=== PATIENT | female | born 1990 | race African-American/Black ===

== ENCOUNTER 2017-04-02 12:43 | Emergency (ER) | payer MEDICAID, OTHER ==
[~2017-04-02] VITALS: Ht 170.2 cm; Wt 57.0 kg
[~2017-04-02 12:43] MED LIST: ACET1TAB12 PO; ALBU6.7H IH; ARIP2TAB3 PO; SERT50TA PO; TRAZ-129 PO
[2017-04-02 19:13] LABS: HEMATOCRIT. 24.3 % (36.0-48.0); HEMOGLOBIN. 7.3 g/dL (12.0-16.0); MEAN CORPUSCULAR HEMOGLOBIN 18.8 pg (28.0-32.0); MEAN CORPUSCULAR VOLUME 63.2 fL (81.0-99.0); MEAN PLATELET VOLUME 6.4 fl (7.4-10.4); PLATELET 419 x1000/uL (130-400); RED BLOOD CELL COUNT 3.85 mill/uL (4.2-5.4); RED CELL DISTRIBUTION WIDTH 23.8 % (11.6-14.6)
[2017-04-02 19:24] LABS: CARBON DIOXIDE 29 mEq/L (21-32); CHLORIDE 105 mEq/L (98-107)
[2017-04-02 19:28] LABS: HCG SCREEN NEGATIVE
[2017-04-02 19:31] LABS: PLATELET ESTIMATE INCREASED
[2017-04-02 19:59] LABS: CLARITY URINE CLEAR (CLEAR); COLOR URINE YELLOW (YELLOW); GLUCOSE URINE NEGATIVE (NEGATIVE); KETONES URINE NEGATIVE (NEGATIVE); LEUKOCYTE ESTERASE URINE NEGATIVE (NEGATIVE); NITRITE URINE NEGATIVE (NEGATIVE); OCCULT BLOOD URINE NEGATIVE (NEGATIVE); PROTEIN URINE 1+ (NEGATIVE); SPECIFIC GRAVITY URINE 1.021 (1.005-1.030)
[2017-04-02 20:07] LABS: *AMPHETAMINES SCREEN URINE NEGATIVE (NEGATIVE); *BARBITURATES SCREEN URINE NEGATIVE (NEGATIVE); *BENZODIAZEPINES SCREEN URINE NEGATIVE (NEGATIVE); METHADONE URINE SCREEN NEGATIVE (NEGATIVE); OPIATES URINE SCREEN NEGATIVE (NEGATIVE); PHENCYCLIDINE URINE SCREEN NEGATIVE (NEGATIVE)
[2017-04-02 20:08] LABS: *COCAINE SCREEN URINE PRESUMTIVE POSITIVE (NEGATIVE); CANNABINOID URINE SCREEN PRESUMTIVE POSITIVE (NEGATIVE)
[2017-04-02 20:18] VITALS: BP 106/60
== END 2017-04-02 21:18 | disposition home or self-care (01) ==
LOC: ER 18:17
DX: L01.00 Impetigo, unspecified (principal); F17.200 Nicotine dependence, unspecified, uncomplicated; F12.10 Cannabis abuse, uncomplicated; J45.909 Unspecified asthma, uncomplicated; D64.9 Anemia, unspecified; Z91.018 Allergy to other foods
CPT/HCPCS: 36415; 80053; 80305; 81001; 84703; 85025; 99284; Z7610

== ENCOUNTER 2017-11-01 08:09 | Emergency (ER) | payer MEDICAID, OTHER ==
[~2017-11-01] VITALS: Ht 177.8 cm; Wt 60.0 kg
[2017-11-01] MEDS ORDERED: SODIUM CHLORIDE 0.9% 1,000 ML IV ONE (10:29)
[2017-11-01] MEDS ORDERED: METOCLOPRAMIDE HCL 10MG/2ML VIAL IV ONE (10:30)
[2017-11-01] MEDS ORDERED: ACETAMINOPHEN 325MG TABLET PO PRN (10:30)
[2017-11-01 10:57] LABS: BASOPHILS % 0.9 % (0.0-2.0); EOSINOPHILS % 0.7 % (0.0-5.0); HEMATOCRIT. 31.7 % (36.0-48.0); HEMOGLOBIN. 9.7 g/dL (12.0-16.0); LYMPHOCYTES % 18.1 % (20.0-50.0); MEAN CORPUSCULAR HEMOGLOBIN 22.9 pg (28.0-32.0); MEAN CORPUSCULAR VOLUME 74.5 fL (81.0-99.0); MEAN PLATELET VOLUME 7.6 fl (7.4-10.4); MONOCYTES % 5.1 % (2.0-8.0); NEUTROPHILS % 75.2 % (40.0-76.0); PLATELET 416 x1000/uL (130-400); RED BLOOD CELL COUNT 4.25 mill/uL (4.2-5.4); RED CELL DISTRIBUTION WIDTH 21.7 % (11.6-14.6)
[2017-11-01 11:01] LABS: CHLORIDE 105 mEq/L (98-107)
[2017-11-01 11:12] LABS: B-HCG QUANTITATIVE < 1 mIU/mL (<3)
[2017-11-01 11:13] LABS: HCG SCREEN NEGATIVE
[2017-11-01 12:22] VITALS: BP 117/77
== END 2017-11-01 12:41 | disposition home or self-care (01) ==
LOC: ER 08:20
DX: O98.511 Other viral diseases complicating pregnancy, first trimester (principal); B34.9 Viral infection, unspecified; O21.9 Vomiting of pregnancy, unspecified; Z3A.10 10 weeks gestation of pregnancy
CPT/HCPCS: 36415; 76830; 76856; 80053; 84702; 84703; 85025; 86850; 86900; 87804; 99285; J7030

== ENCOUNTER 2018-07-20 06:15 | Emergency (ER) | payer MEDICAID ==
[~2018-07-20] VITALS: Ht 172.7 cm; Wt 59.1 kg
[~2018-07-20 06:15] MED LIST changes: -TRAZ-129 PO; +TRAZ-212 PO
[2018-07-20 06:54] LABS: BASOPHILS % 0.9 % (0.0-2.0); HEMATOCRIT. 36.3 % (36.0-48.0); HEMOGLOBIN. 12.1 g/dL (12.0-16.0); LYMPHOCYTES % 19.3 % (20.0-50.0); MEAN CORPUSCULAR HEMOGLOBIN 28.9 pg (28.0-32.0); MEAN CORPUSCULAR VOLUME 86.8 fL (81.0-99.0); MONOCYTES % 5.9 % (2.0-8.0); NEUTROPHILS % 69.9 % (40.0-76.0); PLATELET 290 x1000/uL (130-400); RED BLOOD CELL COUNT 4.18 mill/uL (4.2-5.4); RED CELL DISTRIBUTION WIDTH 14.6 % (11.6-14.6)
[2018-07-20 06:57] LABS: CHLORIDE 108 mEq/L (98-107)
[2018-07-20 07:05] LABS: ETHANOL BLOOD < 10 mg/dL
[2018-07-20] MEDS ORDERED: ACTIVATED CHARCOAL 50 G/240 ML TUBE PO SCH (07:10)
[2018-07-20 09:28] LABS: CLARITY URINE CLEAR (CLEAR); COLOR URINE YELLOW (YELLOW); KETONES URINE NEGATIVE (NEGATIVE); LEUKOCYTE ESTERASE URINE 1+ (NEGATIVE); NITRITE URINE NEGATIVE (NEGATIVE); OCCULT BLOOD URINE 3+ (NEGATIVE); PROTEIN URINE NEGATIVE (NEGATIVE); SPECIFIC GRAVITY URINE 1.015 (1.005-1.030)
[2018-07-20] MEDS ORDERED: METOCLOPRAMIDE HCL 10MG/2ML VIAL IV ONE (09:30)
[2018-07-20] MEDS ORDERED: KETOROLAC 15MG/ML VIAL IV ONE (09:30)
[2018-07-20] MEDS ORDERED: SODIUM CHLORIDE 0.9% 1,000 ML IV ONE (09:30)
[2018-07-20 10:09] LABS: *AMPHETAMINES SCREEN URINE NEGATIVE (NEGATIVE); *BARBITURATES SCREEN URINE NEGATIVE (NEGATIVE); *BENZODIAZEPINES SCREEN URINE NEGATIVE (NEGATIVE); METHADONE URINE SCREEN NEGATIVE (NEGATIVE); OPIATES URINE SCREEN NEGATIVE (NEGATIVE); PHENCYCLIDINE URINE SCREEN NEGATIVE (NEGATIVE)
[2018-07-20 10:11] LABS: *COCAINE SCREEN URINE PRESUMTIVE POSITIVE (NEGATIVE); CANNABINOID URINE SCREEN PRESUMTIVE POSITIVE (NEGATIVE)
[2018-07-20 14:44] VITALS: BP 127/72
== END 2018-07-20 14:58 | disposition home or self-care (01) ==
LOC: ER 06:15
DX: T45.0X2A Poisoning by antiallergic and antiemetic drugs, intentional self-harm, initial encounter (principal); F32.9 Major depressive disorder, single episode, unspecified; F14.10 Cocaine abuse, uncomplicated; F41.9 Anxiety disorder, unspecified; J45.909 Unspecified asthma, uncomplicated; M41.9 Scoliosis, unspecified; N39.0 Urinary tract infection, site not specified; R51 Headache; Z98.890 Other specified postprocedural states; Y92.018 Other place in single-family (private) house as the place of occurrence of the external cause
CPT/HCPCS: 36415; 80053; 80305; 81003; 81025; 82962; 85025; 93005; 96374; 96375; 99285; G0482; J1885; J2765; J7030

== ENCOUNTER 2020-06-17 19:53 | Emergency (ER) | payer MEDICAID ==
[~2020-06-17] VITALS: Ht 177.8 cm; Wt 68.0 kg
[~2020-06-17 19:53] MED LIST changes: -ALBU6.7H IH; +ALBU6.7H11 IH; -TRAZ-212 PO; +TRAZ-251 PO
[2020-06-17] MEDS ORDERED: LIDOCAINE 1%/EPI 1:100,000 10 ML VIAL IJ ONE (20:30)
[2020-06-17] MEDS ORDERED: TETANUS, DIPHTHERIA, PERTUSSIS VAC/PF 0.5ML (>7YR OLD) IM ONE (20:30)
[2020-06-17] MEDS ORDERED: HYDROCODONE/ACETAMINOPHEN 5/325MG TABLET PO ONE (20:30)
[2020-06-17] MEDS ORDERED: BACITRACIN ZINC OINT UDPKT TOP ONE (20:30)
[2020-06-17] MEDS ORDERED: LIDOCAINE/EPINEPHR/TETRACAINE 3ML TP ONE (23:00)
[2020-06-17] MEDS ORDERED: LIDOCAINE/PRILOCAINE CREAM 5 GM TUBE TOP NR (23:59)
[2020-06-18] MEDS ORDERED: ACETAMINOPHEN 325MG TABLET PO ONE (00:30)
[2020-06-18 01:19] VITALS: BP 160/100
== END 2020-06-18 01:24 | disposition home or self-care (01) ==
LOC: ER 19:53
DX: S02.2XXA Fracture of nasal bones, initial encounter for closed fracture (principal); S01.81XA Laceration without foreign body of other part of head, initial encounter; S01.111A Laceration without foreign body of right eyelid and periocular area, initial encounter; S06.9X9A Unspecified intracranial injury with loss of consciousness of unspecified duration, initial encounter; J45.909 Unspecified asthma, uncomplicated; F32.9 Major depressive disorder, single episode, unspecified; Z91.018 Allergy to other foods; Z91.09 Other allergy status, other than to drugs and biological substances; Z98.890 Other specified postprocedural states; Y04.0XXA Assault by unarmed brawl or fight, initial encounter; Y93.89 Activity, other specified; Y92.018 Other place in single-family (private) house as the place of occurrence of the external cause
CPT/HCPCS: 12013; 70450; 70486; 81025; 99285; J3490

== ENCOUNTER 2020-06-19 09:34 | Emergency (ER) | payer MEDICAID ==
[~2020-06-19] VITALS: Ht 180.3 cm; Wt 57.0 kg
[2020-06-19 09:37] VITALS: BP 186/100
== END 2020-06-19 10:54 | disposition home or self-care (01) ==
LOC: ER 09:34
DX: Z48.00 Encounter for change or removal of nonsurgical wound dressing (principal)
CPT/HCPCS: 99281

== ENCOUNTER 2021-06-29 11:10 | Emergency (ER) | payer MEDICAID ==
[~2021-06-29] VITALS: Ht 180.3 cm; Wt 50.7 kg
[~2021-06-29 11:10] MED LIST changes: -ALBU6.7H11 IH; +ALBU6.7H15 IH
[2021-06-29 12:38] LABS: *BARBITURATES SCREEN URINE NEGATIVE (NEGATIVE); *BENZODIAZEPINES SCREEN URINE NEGATIVE (NEGATIVE); METHADONE URINE SCREEN NEGATIVE (NEGATIVE)
[2021-06-29 12:39] LABS: OPIATES URINE SCREEN NEGATIVE (NEGATIVE); PHENCYCLIDINE URINE SCREEN NEGATIVE (NEGATIVE)
[2021-06-29 13:17] LABS: *AMPHETAMINES SCREEN URINE PRESUMTIVE POSITIVE (NEGATIVE); *COCAINE SCREEN URINE PRESUMTIVE POSITIVE (NEGATIVE); CANNABINOID URINE SCREEN PRESUMTIVE POSITIVE (NEGATIVE)
[2021-06-29] MEDS ORDERED: KETOROLAC 60MG/2ML VIAL IM ONE (15:30)
[2021-06-29 15:53] VITALS: BP 123/75
[2021-06-29] MEDS ORDERED: IBUP-2028 MT (16:06)
== END 2021-06-29 17:02 | disposition home or self-care (01) ==
LOC: ER 11:10
DX: S09.8XXA Other specified injuries of head, initial encounter (principal); M54.2 Cervicalgia; G89.11 Acute pain due to trauma; W20.8XXA Other cause of strike by thrown, projected or falling object, initial encounter; Y93.H9 Activity, other involving exterior property and land maintenance, building and construction; Y92.015 Private garage of single-family (private) house as the place of occurrence of the external cause; F14.10 Cocaine abuse, uncomplicated; F15.10 Other stimulant abuse, uncomplicated; F17.210 Nicotine dependence, cigarettes, uncomplicated; Z71.6 Tobacco abuse counseling; F12.90 Cannabis use, unspecified, uncomplicated; M50.322 Other cervical disc degeneration at C5-C6 level; J43.2 Centrilobular emphysema; M85.88 Other specified disorders of bone density and structure, other site; M41.9 Scoliosis, unspecified
CPT/HCPCS: 70450; 72125; 80305; 81025; 96372; 99285; 99406; J1885